=== PATIENT | male | born 1995 | race Caucasian/White ===

== ENCOUNTER 2016-07-07 06:43 | Emergency (ER) | payer OTHER ==
[~2016-07-07] VITALS: Ht 185.4 cm; Wt 77.1 kg
[2016-07-07 06:43] VITALS: BP_SYST 141
[2016-07-07 07:25] VITALS: BP_SYST 135
== END 2016-07-07 07:25 ==
LOC: SED 06:43
DX: Z02.89 Encounter for other administrative examinations (principal)
CPT/HCPCS: 99283